=== PATIENT | male | born 1995 | race Hispanic/Latino ===

== ENCOUNTER 2020-05-07 22:46 | Emergency (ER) | payer OTHER ==
[2020-05-07] MEDS ORDERED: KETOROLAC TROMETHAMINE 60 MG/2 ML VIAL ONE (23:38)
== END 2020-05-07 23:47 | disposition home or self-care (01) ==
LOC: EDH 22:46
DX: M54.5 Low back pain (principal); Z72.0 Tobacco use
CPT/HCPCS: 96372; 99283; J1885

== ENCOUNTER 2021-10-19 22:17 | Emergency (ER) | payer OTHER ==
[~2021-10-19] VITALS: Ht 157.5 cm; Wt 54.4 kg
[2021-10-19 22:25] VITALS: BP_DIAS 77
[2021-10-19 22:27] VITALS: BP_SYST 126
== END 2021-10-20 00:17 | disposition home or self-care (01) ==
LOC: EDH 22:17
DX: S02.2XXA Fracture of nasal bones, initial encounter for closed fracture (principal); S00.83XA Contusion of other part of head, initial encounter; S00.12XA Contusion of left eyelid and periocular area, initial encounter; W18.09XA Striking against other object with subsequent fall, initial encounter; Y93.02 Activity, running; Y92.89 Other specified places as the place of occurrence of the external cause; Y99.8 Other external cause status
CPT/HCPCS: 70450; 70486

== ENCOUNTER 2022-01-03 02:52 | Emergency (ER) | payer OTHER ==
[~2022-01-03] VITALS: Ht 157.5 cm; Wt 48.5 kg
[2022-01-03 02:54] VITALS: BP 121/88
[2022-01-03] MEDS ORDERED: HYDROCODONE/ACETAMINOPHEN 5/325 MG TAB PO ONE (03:30)
[2022-01-03] MEDS ORDERED: PENICILLIN V POTASSIUM 500 MG TABLET PO ONE (03:30)
[2022-01-03] MEDS ORDERED: PENI500T2 PO (03:40)
[2022-01-03] MEDS ORDERED: IBUP-2070 PO (03:40)
== END 2022-01-03 03:48 | disposition home or self-care (01) ==
LOC: EDH 02:52
DX: K05.00 Acute gingivitis, plaque induced (principal); K02.9 Dental caries, unspecified

== ENCOUNTER 2022-10-21 17:47 | Emergency (ER) | payer OTHER ==
[~2022-10-21] VITALS: Ht 157.5 cm; Wt 52.2 kg
[~2022-10-21 17:47] MED LIST: IBUP-2070 PO; PENI500T2 PO
[2022-10-21 20:50] VITALS: BP 123/61
[2022-10-21] MEDS ORDERED: BENZ200C53 PO (21:01)
== END 2022-10-21 21:07 | disposition home or self-care (01) ==
LOC: EDH 17:47
DX: R05.9 Cough, unspecified (principal); Z20.822 Contact with and (suspected) exposure to COVID-19
CPT/HCPCS: 99284; 71045; 87635; 87880; 87804 ×2; C9803

== ENCOUNTER 2023-06-22 12:25 | Emergency (ER) | payer OTHER ==
[~2023-06-22] VITALS: Ht 157.5 cm; Wt 52.2 kg
[~2023-06-22 12:25] MED LIST changes: +BENZ200C53 PO
[2023-06-22 12:26] VITALS: BP 135/61; PULSE 79; RESP 20
[2023-06-22 12:43] LABS: APPEARANCE,URINE CLOUDY (CLEAR); BILIRUBIN,URINE NEGATIVE (NEGATIVE); COLOR,URINE YELLOW (YELLOW); GLUCOSE, URINE (UA) NEGATIVE (NEGATIVE); KETONES,URINE NEGATIVE (NEGATIVE); LEUKOCYTE ESTERASE ,URINE 500 Leu/uL (NEGATIVE); NITRATE,URINE NEGATIVE (NEGATIVE); PROTEIN,URINE 10 mg/dL (NEGATIVE); UROBILINOGEN,URINE 0.2 mg/dL (0.2-1.0)
[2023-06-22 12:44] LABS: ADD UA MICROSCOPIC YES
[2023-06-22 12:58] LABS: BACTERIA,URINE FEW /HPF (None Seen); MUCUS,URINE RARE LPF (None Seen); WBC,URINE TNTC /HPF (0-1)
== END 2023-06-22 16:00 | disposition left against medical advice (07) ==
LOC: EDBD → EDH 12:25
DX: R30.9 Painful micturition, unspecified (principal); Z53.21 Procedure and treatment not carried out due to patient leaving prior to being seen by health care provider
CPT/HCPCS: 81001; 87088

== ENCOUNTER 2023-06-23 23:49 | Emergency (ER) | payer OTHER ==
[~2023-06-23] VITALS: Ht 157.5 cm; Wt 49.9 kg
[2023-06-23 23:51] VITALS: BP 120/60; PULSE 63; RESP 20
[2023-06-24 00:29] LABS: APPEARANCE,URINE CLOUDY (CLEAR); BILIRUBIN,URINE NEGATIVE (NEGATIVE); COLOR,URINE YELLOW (YELLOW); GLUCOSE, URINE (UA) NEGATIVE (NEGATIVE); KETONES,URINE NEGATIVE (NEGATIVE); LEUKOCYTE ESTERASE ,URINE 500 Leu/uL (NEGATIVE); NITRATE,URINE NEGATIVE (NEGATIVE); OCCULT BLOOD,URINE SMALL (NEGATIVE); PH,URINE 6.5 (5.0-8.0); PROTEIN,URINE 50 mg/dL (NEGATIVE)
[2023-06-24 00:35] LABS: ADD UA MICROSCOPIC YES
[2023-06-24 00:39] LABS: MUCUS,URINE RARE LPF (None Seen); RBC,URINE 26-50 /HPF (0-1); WBC CLUMP FEW /HPF (0-1); WBC,URINE TNTC /HPF (0-1)
[2023-06-24] MEDS ORDERED: [UNRECOGNIZED DRUG - CODE] PO (00:58)
== END 2023-06-24 01:03 | disposition home or self-care (01) ==
LOC: EDBD 23:49 → EDH 23:49
DX: N39.0 Urinary tract infection, site not specified (principal)
CPT/HCPCS: 81001